=== PATIENT | male | born 1950 | race Caucasian/White ===

== ENCOUNTER 2017-11-26 21:53 | Emergency (ER) | payer BC, MEDICARE ==
[~2017-11-26] VITALS: Ht 177.8 cm; Wt 86.2 kg
[2017-11-26 22:43] LABS: Basophils # (auto) 0 uL; Basophils % (auto) 0.4 % (0.0-2.0); Eosinophils # (auto) 0.4 uL; Eosinophils % (auto) 4.2 % (0.0-7.0); Hematocrit 43.8 % (41.0-53.0); Hemoglobin 14.5 g/dL (13.5-17.5); Lymphocytes # (auto) 3.5 uL; Lymphocytes % (auto) 35.9 % (10.0-50.0); Mean Corpuscular Hemoglobin 30.3 pg (28.0-32.0); Mean Corpuscular Volume 91.8 fL (80.0-100.0); Monocytes # (auto) 0.9 uL; Monocytes % (auto) 9.6 % (0.0-12.0); Neutrophils # (auto) 4.9 uL; Neutrophils % (auto) 49.9 % (37.0-80.0); Platelet Count (auto) 233 10^3/uL (140-450); Red Blood Cells 4.78 10^6/uL (4.5-5.90); Red Cell Distribution Width 15.9 % (11.8-14.3); White Blood Cell 9.8 10^3/uL (4.4-10.8)
[2017-11-26 22:54] LABS: INR 1.01 (0.9-1.15); Prothrombin Time 10.8 sec (9.27-12.13)
[2017-11-26] MEDS: MORPHINE SULF INJ 2 MG/ML SYRINGE 1ML IV ONE (23:01)
[2017-11-26] MEDS: ASPirin-EC 325mg tab PO ONE (23:01)
[2017-11-26 23:03] LABS: Albumin 3.4 g/dL (3.4-5.0); Anion Gap 10 (5-15); Blood Urea Nitrogen 32 mg/dL (7-18); Calcium 8.4 mg/dL (8.5-10.1); Carbon Dioxide 24 mmol/L (21-32); Chloride 107 mmol/L (98-107); Glucose 92 mg/dL (74-106); Magnesium 2.2 mg/dL (1.6-2.6); Potassium 3.8 mmol/L (3.5-5.1); Sodium 141 mmol/L (136-145)
[2017-11-26 23:05] LABS: Alanine Aminotransferase 27 U/L (16-61); Aspartate Aminotransferase 9 U/L (15-37); BUN/Creatinine Ratio 26.4; GFR African American 77 mL/min; GFR Non-African American 63 mL/min
[2017-11-26 23:10] LABS: Alkaline Phosphatase 99 U/L (45-117); Bilirubin, Total 0.2 mg/dL (0.2-1.0); Total Protein 6.7 g/dL (6.4-8.2)
[2017-11-26] MEDS: ALBUTEROL SULF 2.5 MG/0.5ML(0.5%) NEB SOLN NEB ONE (23:13)
[2017-11-26] MEDS: IPRATROPIUM BROM 0.5 MG/2.5ML INH SOL NEB ONE (23:13)
[2017-11-27 00:58] VITALS: BP 116/76
== END 2017-11-27 00:31 | disposition home or self-care (01) ==
LOC: EDBD 21:53 → ER 21:58
DX: I71.4 Abdominal aortic aneurysm, without rupture (principal); J44.9 Chronic obstructive pulmonary disease, unspecified; R07.9 Chest pain, unspecified; I25.119 Atherosclerotic heart disease of native coronary artery with unspecified angina pectoris; I10 Essential (primary) hypertension; I25.2 Old myocardial infarction; Z98.61 Coronary angioplasty status
CPT/HCPCS: 36415; 71045; 71260; 74177; 80053; 83735; 83880; 84484; 85025; 85610; 85730; 93005; 94640; 94761; 96374; 99285; J2270; J7611; J7644

== ENCOUNTER 2021-03-09 06:58 | Inpatient (IN) | payer MEDICARE, OTHER ==
[~2021-03-09] VITALS: Ht 177.8 cm; Wt 113.0 kg
[2021-03-09 06:58] VITALS: BP_SYST 160; BP_SYST 190; BP_DIAS 106
[~2021-03-09 06:58] MED LIST: ALB5IS NEB; ALBU0.084 NEB; ALPR0.5T PO; APIX5TAB PO; ATOR40TA52 PO; FURO1TAB31 PO; LEUP45IN2 IM; METO25TA36 PO; MULTTAB99 PO; POTA10TA51 PO; PRE1T PO; SENN1TAB14 PO; TRAM50TA2 PO
[2021-03-09] MEDS ORDERED: ETOMIDATE (2MG/ML) 20ML VIAL IV ONE (07:45)
[2021-03-09] MEDS ORDERED: SUCCINYLCHOLINE CHLORIDE 20 MG/ML 10ML VIAL IV ONE (07:45)
[2021-03-09] MEDS ORDERED: MIDAZOLAM DRIP 50 mg/50mL 50 ML IV ONE (07:45)
[2021-03-09] MEDS ORDERED: MORPHINE SULFATE 4 MG/ML SYR/VIAL ONE (07:46)
[2021-03-09] MEDS ORDERED: fentaNYL Drip 2500mCg/250mlNS 250 ML IV ONE (07:47)
[2021-03-09 07:48] LABS: Basophils # (auto) 0 10 ^3/uL (0-0.2); Basophils % (auto) 0.2 % (0.0-2.0); Eosinophils # (auto) 0 10 ^3/uL (0-0.8); Eosinophils % (auto) 0.1 % (0.0-7.0); Hematocrit 45.5 % (41.0-53.0); Hemoglobin 14.7 g/dL (13.5-17.5); Lymphocytes # (auto) 3.7 10 ^3/uL (0.4-5.4); Lymphocytes % (auto) 32.2 % (10.0-50.0); Mean Corpuscular Hemoglobin 29.6 pg (28.0-32.0); Mean Corpuscular Hgb Conc. 32.4 g/dL (32.0-36.0); Mean Corpuscular Volume 91.6 fL (80.0-100.0); Monocytes # (auto) 0.5 10 ^3/uL (0-1.3); Monocytes % (auto) 4.1 % (0.0-12.0); Neutrophils # (auto) 7.2 10 ^3/uL (1.6-8.6); Neutrophils % (auto) 63.4 % (37.0-80.0); Nucleated Red Blood Cells % 0.1 %; Red Blood Cells 4.97 10^6/uL (4.5-5.90); White Blood Cell 11.4 10^3/uL (4.4-10.8)
[2021-03-09] MEDS ORDERED: methylPREDNISolone SOD SUCC 125 MG/2 ML VL ONE (07:53)
[2021-03-09] MEDS ORDERED: FUROSEMIDE 40 MG/4 ML VIAL ONE (07:53)
[2021-03-09] MEDS ORDERED: methylPREDNISolone SOD SUCC 125 MG/2 ML VL IV ONE (08:00)
[2021-03-09] MEDS ORDERED: FUROSEMIDE 20 MG/2 ML VIAL IV ONE (08:00)
[2021-03-09 08:10] LABS: Albumin 2.8 g/dL (3.4-5.0); Calcium 8.6 mg/dL (8.5-10.1); Magnesium 2.8 mg/dL (1.6-2.6); Potassium 4.5 mmol/L (3.5-5.1)
[2021-03-09 08:15] LABS: BUN/Creatinine Ratio 25.2; Bilirubin, Total 0.6 mg/dL (0.2-1.0); Total Protein 6.9 g/dL (6.4-8.2)
[2021-03-09] MEDS ORDERED: MORPHINE SULFATE 4 MG/ML SYR/VIAL IV ONE (08:15)
[2021-03-09] MEDS ORDERED: ALBUTEROL SULF 2.5 MG/0.5ML(0.5%) NEB SOLN NEB ONE ×2 (08:45→13:45)
[2021-03-09] MEDS ORDERED: ALBUTEROL SULF 2.5 MG/0.5ML(0.5%) NEB SOLN ONE (08:47)
[2021-03-09 09:25] LABS: Urine Bacteria FEW /hpf (None Seen); Urine Blood TRACE /uL (Negative); Urine Hyaline Cast MOD /lpf (0 - 2); Urine Mucus FEW (None Seen); Urine Specific Gravity 1.009 (1.001-1.035); Urine WBC <1 /hpf (0 - 3)
[2021-03-09 09:46] LABS: INR 1.04 (0.9-1.15); Partial Thromboplastin Time 29.5 sec (23.6-33.0)
[2021-03-09] MEDS: MORPHINE SULFATE INJECTION 2 MG/ML SYRG IV PRN ×2 (10:07→22:32)
[2021-03-09] MEDS ORDERED: AZITHROMYCIN 500MG/ 250ML 250 ML IV ONE (11:00)
[2021-03-09] MEDS ORDERED: cefTRIAXone 1GM/50ML D5W 50 ML IV ONE (11:00)
[2021-03-09] MEDS ORDERED: NITROGLYCERIN 0.4 MG SL TAB SL PRN ×2 (12:00→13:45)
[2021-03-09] MEDS: LORazepam 2MG/ML-1ML VIAL IV PRN ×2 (12:38→20:21)
[2021-03-09] MEDS ORDERED: ALBUTEROL SULF 2.5 MG/0.5ML(0.5%) NEB SOLN NEB PRN (13:45)
[2021-03-09] MEDS ORDERED: BUMETANIDE 2.5mg/10ml (0.25 mg/ml) INJ IV ONE (13:45)
[2021-03-09] MEDS ORDERED: DOCUSATE SOD 100 MG CAP PO PRN (13:45)
[2021-03-09] MEDS ORDERED: HYDROcodone-ACET 5/325MG TAB PO PRN (13:45)
[2021-03-09] MEDS ORDERED: ALUM & MAG HYDROX-SIMETH LIQ(MAALOX) 30 ML PO PRN (13:45)
[2021-03-09] MEDS ORDERED: LORazepam 0.5 MG TAB PO PRN (13:45)
[2021-03-09] MEDS ORDERED: levoFLOXacin 750MG 150 ML IV ONE (13:45)
[2021-03-09] MEDS ORDERED: MORPHINE SULFATE INJECTION 2 MG/ML SYRG IV PRN ×2 (13:45)
[2021-03-09] MEDS ORDERED: IPRATROPIUM BROM 0.5 MG/2.5ML INH SOL NEB ONE (13:45)
[2021-03-09] MEDS ORDERED: BUDESONIDE (INHALATION) 0.5 MG/2 ML NEB NEB ONE (13:45)
[2021-03-09] MEDS ORDERED: ACETAMINOPHEN 500 MG TAB PO PRN (13:45)
[2021-03-09] MEDS ORDERED: REMDESIVIR PER PHARMACY 0 ML IV SCH (13:45)
[2021-03-09] MEDS ORDERED: ALBUTEROL SULF HFA 90MCG INH 200DOSE IN PRN (14:00)
[2021-03-09] MEDS: hydrALAZINE HCL 10 MG TAB PO SCH ×2 (14:00→22:00)
[2021-03-09] MEDS ORDERED: IPRATROPIUM BROM 0.5 MG/2.5ML INH SOL NEB SCH (14:00)
[2021-03-09] MEDS ORDERED: REMDESIVIR 200 MG in NS 210ml LOADING DOSE ADULT IV ONE (15:00)
[2021-03-09 15:26] LABS: Alcohol, Urine < 3.0 mg/dL (0-10); Amphetamine Screen, Urine NEGATIVE (NEGATIVE); Barbiturate Scree,Urine NEGATIVE (NEGATIVE); Benzodiazephine Screen, Urine NEGATIVE (NEGATIVE); Cannabinoid Screen, Urine NEGATIVE (NEGATIVE); Cocaine Screen, Urine NEGATIVE (NEGATIVE); Opiate Scree,Urine POSITIVE (NEGATIVE); Phencyclidine Screen, Urine NEGATIVE (NEGATIVE)
[2021-03-09 15:26] LABS: Thyroid Stimulating Hormone 1.17 uIU/mL (0.358-3.74)
[2021-03-09] MEDS: BUMETANIDE 2.5mg/10ml (0.25 mg/ml) INJ IV SCH (18:28)
[2021-03-09] MEDS ORDERED: BUDESONIDE (INHALATION) 0.5 MG/2 ML NEB NEB SCH (22:00)
[2021-03-09] MEDS ORDERED: BUDESONIDE (INHALATION) 180 MCG IH IN SCH (22:00)
[2021-03-09] MEDS ORDERED: ATORVASTATIN 20 MG TAB PO SCH (22:00)
[2021-03-09] MEDS: ISOSORBIDE MONONITRATE 20 MG TAB PO SCH (22:00)
[2021-03-09] MEDS: CARVEDILOL 3.125 MG TAB PO SCH (22:28)
[2021-03-09] MEDS: APIXABAN 5 MG TAB PO SCH (22:28)
[2021-03-10] MEDS: LORazepam 2MG/ML-1ML VIAL IV PRN ×4 (00:54→22:07)
[2021-03-10] MEDS ORDERED: CARV3.1240 PO (01:05)
[2021-03-10] MEDS ORDERED: LORA-622 PO (01:05)
[2021-03-10] MEDS ORDERED: SALI0.6562 NAS (01:05)
[2021-03-10] MEDS ORDERED: AMIO200T4 PO (01:05)
[2021-03-10] MEDS ORDERED: BUME2TAB5 PO (01:05)
[2021-03-10] MEDS ORDERED: GAB100C PO (01:05)
[2021-03-10] MEDS ORDERED: LORA1TAB23 PO (01:05)
[2021-03-10] MEDS ORDERED: LACTCAP20 PO (01:05)
[2021-03-10] MEDS ORDERED: FLUT1AER17 INH (01:05)
[2021-03-10] MEDS ORDERED: LACT10SO3 PO (01:05)
[2021-03-10] MEDS ORDERED: CHOL500014 PO (01:05)
[2021-03-10] MEDS ORDERED: [UNRECOGNIZED DRUG - CODE] PO (01:05)
[2021-03-10] MEDS ORDERED: HYDR-4072 PO (01:05)
[2021-03-10] MEDS ORDERED: BUDE2SUS3 NEB (01:05)
[2021-03-10] MEDS ORDERED: THROLOZ41 PO (01:05)
[2021-03-10] MEDS ORDERED: PRE5T PO (01:05)
[2021-03-10] MEDS ORDERED: HYDRX10T PO (01:05)
[2021-03-10 02:15] VITALS: BP 151/102
[2021-03-10] MEDS: MORPHINE SULFATE INJECTION 2 MG/ML SYRG IV PRN (04:29)
[2021-03-10 05:32] LABS: Basophils # (auto) 0.1 10 ^3/uL (0-0.2); Basophils % (auto) 0.8 % (0.0-2.0); Eosinophils # (auto) 0 10 ^3/uL (0-0.8); Hematocrit 38.1 % (41.0-53.0); Hemoglobin 12.3 g/dL (13.5-17.5); Lymphocytes # (auto) 1.2 10 ^3/uL (0.4-5.4); Lymphocytes % (auto) 10.6 % (10.0-50.0); Mean Corpuscular Hgb Conc. 32.4 g/dL (32.0-36.0); Mean Corpuscular Volume 89.4 fL (80.0-100.0); Monocytes # (auto) 0.5 10 ^3/uL (0-1.3); Monocytes % (auto) 4.6 % (0.0-12.0); Neutrophils # (auto) 9.6 10 ^3/uL (1.6-8.6); Nucleated Red Blood Cells % 0.1 %; Red Blood Cells 4.26 10^6/uL (4.5-5.90); White Blood Cell 11.5 10^3/uL (4.4-10.8)
[2021-03-10 05:49] LABS: Albumin 2.7 g/dL (3.4-5.0); Calcium 8.8 mg/dL (8.5-10.1)
[2021-03-10 05:53] LABS: BUN/Creatinine Ratio 29.8; Bilirubin, Total 0.6 mg/dL (0.2-1.0)
[2021-03-10] MEDS: BUMETANIDE 2.5mg/10ml (0.25 mg/ml) INJ IV SCH ×2 (06:54→17:21)
[2021-03-10] MEDS: hydrALAZINE HCL 10 MG TAB PO SCH ×3 (06:55→22:03)
[2021-03-10] MEDS ORDERED: SUCCINYLCHOLINE CHLORIDE 20 MG/ML 10ML VIAL IV ONE ×2 (09:26→09:30)
[2021-03-10] MEDS ORDERED: ETOMIDATE (2MG/ML) 20ML VIAL IV ONE ×2 (09:26→09:30)
[2021-03-10] MEDS ORDERED: MIDAZOLAM DRIP 50 mg/50mL 50 ML IV ONE (09:27)
[2021-03-10] MEDS: MIDAZOLAM DRIP 50 mg/50mL 50 ML IV SCH (09:30)
[2021-03-10] MEDS: fentaNYL Drip 2500mCg/250mlNS 250 ML IV SCH (09:30)
[2021-03-10] MEDS ORDERED: PROMETHAZINE HCL 25 MG/ML 1ML IV ONE (09:45)
[2021-03-10] MEDS ORDERED: HYDROmorphone HCL 2 MG/ML VL IV ONE (09:45)
[2021-03-10] MEDS: DexAMETHasone SOD PHOS 10MG/1ML VIAL INJ IV SCH (10:00)
[2021-03-10] MEDS: CHOLECALCIFEROL (VITD3) 2,000 UNIT CAP/TAB PO SCH (10:00)
[2021-03-10] MEDS: ASCORBIC ACID 1,000 MG TAB PO SCH (10:00)
[2021-03-10] MEDS: ISOSORBIDE MONONITRATE 20 MG TAB PO SCH ×2 (10:00→22:07)
[2021-03-10] MEDS: APIXABAN 5 MG TAB PO SCH ×2 (10:00→22:06)
[2021-03-10] MEDS: CARVEDILOL 3.125 MG TAB PO SCH ×2 (10:00→22:04)
[2021-03-10] MEDS ORDERED: levoFLOXacin 750MG 150 ML IV SCH (10:00)
[2021-03-10] MEDS: ASPirin 81 mg TAB PO SCH (10:00)
[2021-03-10] MEDS: IVERMECTIN 3 MG TAB PO SCH (10:00)
[2021-03-10 10:25] VITALS: BP 123/79
[2021-03-10] MEDS ORDERED: HYDROmorphone HCL 2 MG/ML VL IV PRN (10:30)
[2021-03-10] MEDS ORDERED: PIPERACILLIN-TAZO 4.5GM 100 ML IV ONE (10:45)
[2021-03-10] MEDS ORDERED: BUDESONIDE (INHALATION) 0.5 MG/2 ML NEB NEB ONE (10:45)
[2021-03-10] MEDS ORDERED: ALBUTEROL SULF 2.5 MG/0.5ML(0.5%) NEB SOLN NEB ONE (10:45)
[2021-03-10] MEDS ORDERED: IPRATROPIUM BROM 0.5 MG/2.5ML INH SOL NEB ONE (10:45)
[2021-03-10] MEDS ORDERED: LABETALOL HCL 5 MG/ML 4ML SYRINGE IV PRN (11:00)
[2021-03-10 11:49] VITALS: BP 151/80
[2021-03-10 13:45] VITALS: BP 110/71
[2021-03-10] MEDS ORDERED: IPRATROPIUM BROM 0.5 MG/2.5ML INH SOL NEB SCH (14:00)
[2021-03-10] MEDS ORDERED: IPRATROPIUM BROM 0.5 MG/2.5ML INH SOL NEB PRN (14:00)
[2021-03-10] MEDS: HYDROmorphone HCL 2 MG/ML VL IV PRN ×2 (14:18→18:46)
[2021-03-10] MEDS: ONDANSETRON HCL 4 MG/2 ML VIAL IV PRN ×2 (14:22→18:46)
[2021-03-10] MEDS: REMDESIVIR 100mg 100 MG in SODIUM CHL 0.9% 230 ML IV SCH (15:08)
[2021-03-10 18:10] VITALS: BP 131/58
[2021-03-10] MEDS: PIPERACILLIN-TAZO 4.5GM 100 ML IV SCH (20:09)
[2021-03-10] MEDS: ATORVASTATIN 20 MG TAB PO SCH (22:07)
[2021-03-10 22:10] VITALS: BP 132/87
[2021-03-10] MEDS: BUDESONIDE (INHALATION) 0.5 MG/2 ML NEB NEB SCH (22:10)
[2021-03-10] MEDS: ALBUTEROL SULF 2.5 MG/0.5ML(0.5%) NEB SOLN NEB PRN (22:11)
[2021-03-11] VITALS (7 sets, daily range): BP systolic 109–142; BP diastolic 71–86
[2021-03-11] MEDS: PIPERACILLIN-TAZO 4.5GM 100 ML IV SCH ×3 (02:24→19:04)
[2021-03-11] MEDS: MORPHINE SULFATE INJECTION 2 MG/ML SYRG IV PRN ×2 (04:10→14:59)
[2021-03-11] MEDS: ONDANSETRON HCL 4 MG/2 ML VIAL IV PRN (04:10)
[2021-03-11] MEDS: BUMETANIDE 2.5mg/10ml (0.25 mg/ml) INJ IV SCH ×2 (05:53→18:08)
[2021-03-11] MEDS: hydrALAZINE HCL 10 MG TAB PO SCH ×3 (05:54→22:00)
[2021-03-11] MEDS: HYDROmorphone HCL 2 MG/ML VL IV PRN ×2 (08:01→17:40)
[2021-03-11] MEDS: LORazepam 2MG/ML-1ML VIAL IV PRN ×4 (09:14→19:05)
[2021-03-11] MEDS: MIDAZOLAM DRIP 50 mg/50mL 50 ML IV SCH (09:30)
[2021-03-11] MEDS: fentaNYL Drip 2500mCg/250mlNS 250 ML IV SCH (09:30)
[2021-03-11] MEDS: ALBUTEROL SULF 2.5 MG/0.5ML(0.5%) NEB SOLN NEB PRN ×2 (09:54→19:11)
[2021-03-11] MEDS: BUDESONIDE (INHALATION) 0.5 MG/2 ML NEB NEB SCH ×2 (09:54→19:11)
[2021-03-11 10:02] LABS: Basophils # (auto) 0 10 ^3/uL (0-0.2); Basophils % (auto) 0.1 % (0.0-2.0); Eosinophils # (auto) 0 10 ^3/uL (0-0.8); Hematocrit 37.7 % (41.0-53.0); Hemoglobin 12.3 g/dL (13.5-17.5); Lymphocytes % (auto) 10.4 % (10.0-50.0); Mean Corpuscular Hemoglobin 29.4 pg (28.0-32.0); Mean Corpuscular Hgb Conc. 32.7 g/dL (32.0-36.0); Mean Corpuscular Volume 90.1 fL (80.0-100.0); Monocytes # (auto) 0.5 10 ^3/uL (0-1.3); Monocytes % (auto) 5.6 % (0.0-12.0); Neutrophils % (auto) 83.9 % (37.0-80.0); Red Blood Cells 4.19 10^6/uL (4.5-5.90); Red Cell Distribution Width 17.1 % (11.8-14.3); White Blood Cell 9.5 10^3/uL (4.4-10.8)
[2021-03-11 10:07] LABS: Albumin 2.6 g/dL (3.4-5.0); Calcium 8.6 mg/dL (8.5-10.1); Phosphorus 4.5 mg/dL (2.5-4.90); Potassium 3.8 mmol/L (3.5-5.1)
[2021-03-11 10:10] LABS: BUN/Creatinine Ratio 40.5; Bilirubin, Total 0.6 mg/dL (0.2-1.0); Total Protein 6.2 g/dL (6.4-8.2)
[2021-03-11] MEDS: DexAMETHasone SOD PHOS 10MG/1ML VIAL INJ IV SCH (10:25)
[2021-03-11] MEDS: ASPirin 81 mg TAB PO SCH (10:30)
[2021-03-11] MEDS: CHOLECALCIFEROL (VITD3) 2,000 UNIT CAP/TAB PO SCH (10:35)
[2021-03-11] MEDS: ASCORBIC ACID 1,000 MG TAB PO SCH (10:35)
[2021-03-11] MEDS: ISOSORBIDE MONONITRATE 20 MG TAB PO SCH ×2 (10:35→22:00)
[2021-03-11] MEDS: CARVEDILOL 3.125 MG TAB PO SCH ×2 (10:35→22:00)
[2021-03-11] MEDS: APIXABAN 5 MG TAB PO SCH ×2 (10:35→22:00)
[2021-03-11] MEDS: IVERMECTIN 3 MG TAB PO SCH (10:35)
[2021-03-11] MEDS: CLINDAMYCIN 600MG IV 50 ML IV SCH ×2 (13:51→20:49)
[2021-03-11] MEDS: REMDESIVIR 100mg 100 MG in SODIUM CHL 0.9% 230 ML IV SCH (16:23)
[2021-03-11] MEDS: ATORVASTATIN 20 MG TAB PO SCH (22:00)
[2021-03-12] VITALS (13 sets, daily range): BP systolic 113–165; BP diastolic 66–108
[2021-03-12] MEDS: CLINDAMYCIN 600MG IV 50 ML IV SCH ×3 (00:07→20:45)
[2021-03-12] MEDS: MORPHINE SULFATE INJECTION 2 MG/ML SYRG IV PRN ×3 (02:11→17:20)
[2021-03-12] MEDS: PIPERACILLIN-TAZO 4.5GM 100 ML IV SCH ×3 (03:25→19:35)
[2021-03-12] MEDS: hydrALAZINE HCL 10 MG TAB PO SCH ×3 (06:00→22:00)
[2021-03-12] MEDS: BUMETANIDE 2.5mg/10ml (0.25 mg/ml) INJ IV SCH ×2 (06:12→18:00)
[2021-03-12] MEDS: LORazepam 2MG/ML-1ML VIAL IV PRN ×5 (06:33→22:29)
[2021-03-12] MEDS: HYDROmorphone HCL 2 MG/ML VL IV PRN ×3 (06:33→18:05)
[2021-03-12 06:39] LABS: Basophils # (auto) 0 10 ^3/uL (0-0.2); Basophils % (auto) 0.1 % (0.0-2.0); Eosinophils # (auto) 0 10 ^3/uL (0-0.8); Hematocrit 38.5 % (41.0-53.0); Hemoglobin 12.7 g/dL (13.5-17.5); Lymphocytes # (auto) 1.1 10 ^3/uL (0.4-5.4); Lymphocytes % (auto) 9.7 % (10.0-50.0); Mean Corpuscular Hemoglobin 29.6 pg (28.0-32.0); Mean Corpuscular Hgb Conc. 32.9 g/dL (32.0-36.0); Monocytes # (auto) 0.6 10 ^3/uL (0-1.3); Monocytes % (auto) 5.4 % (0.0-12.0); Neutrophils # (auto) 9.5 10 ^3/uL (1.6-8.6); Neutrophils % (auto) 84.8 % (37.0-80.0); Nucleated Red Blood Cells % 0.1 %; Red Blood Cells 4.28 10^6/uL (4.5-5.90); Red Cell Distribution Width 17.4 % (11.8-14.3); White Blood Cell 11.3 10^3/uL (4.4-10.8)
[2021-03-12 06:53] LABS: Albumin 2.5 g/dL (3.4-5.0); Calcium 9.5 mg/dL (8.5-10.1); Potassium 3.4 mmol/L (3.5-5.1)
[2021-03-12 06:58] LABS: Bilirubin, Total 0.6 mg/dL (0.2-1.0); Total Protein 6.7 g/dL (6.4-8.2)
[2021-03-12] MEDS: fentaNYL Drip 2500mCg/250mlNS 250 ML IV SCH (09:30)
[2021-03-12] MEDS: MIDAZOLAM DRIP 50 mg/50mL 50 ML IV SCH (09:30)
[2021-03-12] MEDS: CHOLECALCIFEROL (VITD3) 2,000 UNIT CAP/TAB PO SCH (10:00)
[2021-03-12] MEDS: APIXABAN 5 MG TAB PO SCH ×2 (10:00→22:00)
[2021-03-12] MEDS: ISOSORBIDE MONONITRATE 20 MG TAB PO SCH ×2 (10:00→20:47)
[2021-03-12] MEDS: BUDESONIDE (INHALATION) 0.5 MG/2 ML NEB NEB SCH ×2 (10:00→22:00)
[2021-03-12] MEDS: CARVEDILOL 3.125 MG TAB PO SCH ×2 (10:00→20:46)
[2021-03-12] MEDS: ASPirin 81 mg TAB PO SCH (10:00)
[2021-03-12] MEDS: IVERMECTIN 3 MG TAB PO SCH (10:00)
[2021-03-12] MEDS: ASCORBIC ACID 1,000 MG TAB PO SCH (10:00)
[2021-03-12] MEDS: DexAMETHasone SOD PHOS 10MG/1ML VIAL INJ IV SCH (10:23)
[2021-03-12] MEDS: POTASSIUM CHL 20MEQ/50ML 50 ML IV SCH ×2 (10:38→12:27)
[2021-03-12] MEDS ORDERED: ACETAMINOPHEN 650 MG RECT SUPP PR PRN (10:45)
[2021-03-12] MEDS: REMDESIVIR 100mg 100 MG in SODIUM CHL 0.9% 230 ML IV SCH (15:16)
[2021-03-12] MEDS: ATORVASTATIN 20 MG TAB PO SCH (20:48)
[2021-03-13] VITALS (13 sets, daily range): BP systolic 108–171; BP diastolic 68–121
[2021-03-13] MEDS: LORazepam 2MG/ML-1ML VIAL IV PRN ×3 (01:21→06:53)
[2021-03-13] MEDS: MORPHINE SULFATE INJECTION 2 MG/ML SYRG IV PRN (01:33)
[2021-03-13] MEDS: CLINDAMYCIN 600MG IV 50 ML IV SCH (03:06)
[2021-03-13] MEDS: PIPERACILLIN-TAZO 4.5GM 100 ML IV SCH ×3 (03:06→19:30)
[2021-03-13] MEDS: HYDROmorphone HCL 2 MG/ML VL IV PRN (04:51)
[2021-03-13] MEDS: hydrALAZINE HCL 10 MG TAB PO SCH ×3 (05:43→22:00)
[2021-03-13] MEDS: BUMETANIDE 2.5mg/10ml (0.25 mg/ml) INJ IV SCH (05:43)
[2021-03-13] MEDS: BUDESONIDE (INHALATION) 0.5 MG/2 ML NEB NEB SCH ×2 (06:22→22:54)
[2021-03-13] MEDS: ALBUTEROL SULF 2.5 MG/0.5ML(0.5%) NEB SOLN NEB PRN ×2 (06:22→22:54)
[2021-03-13 06:58] LABS: Albumin 2.6 g/dL (3.4-5.0); Potassium 3.5 mmol/L (3.5-5.1)
[2021-03-13 07:02] LABS: Bilirubin, Total 0.6 mg/dL (0.2-1.0); Total Protein 6.9 g/dL (6.4-8.2)
[2021-03-13] MEDS ORDERED: ETOMIDATE (2MG/ML) 20ML VIAL IV ONE ×2 (08:28→08:45)
[2021-03-13] MEDS ORDERED: ROCURONIUM 10MG/ML 10ML VIAL IV ONE ×2 (08:28→08:45)
[2021-03-13] MEDS ORDERED: MIDAZOLAM HCL 2MG/2ML 2ml VIAL (1mg/ml) ONE (08:29)
[2021-03-13] MEDS ORDERED: PROPOFOL 100 ML IV ONE (08:36)
[2021-03-13] MEDS: PROPOFOL 100 ML IV SCH (08:38)
[2021-03-13] MEDS ORDERED: MIDAZOLAM HCL 2MG/2ML 2ml VIAL (1mg/ml) IV ONE (08:45)
[2021-03-13] MEDS: APIXABAN 5 MG TAB PO SCH ×2 (10:00→22:53)
[2021-03-13] MEDS: CARVEDILOL 3.125 MG TAB PO SCH ×2 (10:00→22:53)
[2021-03-13] MEDS: ASCORBIC ACID 1,000 MG TAB PO SCH (10:00)
[2021-03-13] MEDS: IVERMECTIN 3 MG TAB PO SCH (10:00)
[2021-03-13] MEDS ORDERED: ISOSORBIDE MONONITRATE 20 MG TAB PO SCH (12:30)
[2021-03-13] MEDS: DexAMETHasone SOD PHOS 10MG/1ML VIAL INJ IV SCH (12:45)
[2021-03-13] MEDS ORDERED: D5W 5% 1,000 ML IV ONE (13:30)
[2021-03-13] MEDS: fentaNYL Drip 2500mCg/250mlNS 250 ML IV SCH (15:45)
[2021-03-13] MEDS: MIDAZOLAM DRIP 50 mg/50mL 50 ML IV SCH (15:45)
[2021-03-13] MEDS: REMDESIVIR 100mg 100 MG in SODIUM CHL 0.9% 230 ML IV SCH (16:00)
[2021-03-13] MEDS: ATORVASTATIN 20 MG TAB PO SCH (22:54)
[2021-03-14 01:52] VITALS: BP 121/73
[2021-03-14] MEDS: PIPERACILLIN-TAZO 4.5GM 100 ML IV SCH ×3 (03:45→19:05)
[2021-03-14] MEDS: hydrALAZINE HCL 10 MG TAB PO SCH ×3 (06:00→21:47)
[2021-03-14 07:30] VITALS: BP 141/87
[2021-03-14 07:43] LABS: Basophils # (auto) 0 10 ^3/uL (0-0.2); Basophils % (auto) 0.2 % (0.0-2.0); Eosinophils # (auto) 0 10 ^3/uL (0-0.8); Hematocrit 37.6 % (41.0-53.0); Hemoglobin 12.5 g/dL (13.5-17.5); Lymphocytes # (auto) 1.1 10 ^3/uL (0.4-5.4); Lymphocytes % (auto) 11.7 % (10.0-50.0); Mean Corpuscular Hemoglobin 29.9 pg (28.0-32.0); Mean Corpuscular Hgb Conc. 33.1 g/dL (32.0-36.0); Mean Corpuscular Volume 90.2 fL (80.0-100.0); Monocytes # (auto) 0.5 10 ^3/uL (0-1.3); Monocytes % (auto) 5.4 % (0.0-12.0); Neutrophils # (auto) 7.8 10 ^3/uL (1.6-8.6); Neutrophils % (auto) 82.7 % (37.0-80.0); Nucleated Red Blood Cells % 0.1 %; Red Blood Cells 4.17 10^6/uL (4.5-5.90); Red Cell Distribution Width 16.7 % (11.8-14.3); White Blood Cell 9.5 10^3/uL (4.4-10.8)
[2021-03-14 07:53] LABS: Albumin 2.5 g/dL (3.4-5.0); Calcium 9.1 mg/dL (8.5-10.1); Potassium 3.2 mmol/L (3.5-5.1)
[2021-03-14 07:58] LABS: BUN/Creatinine Ratio 47.8; Bilirubin, Total 0.8 mg/dL (0.2-1.0); Total Protein 6.7 g/dL (6.4-8.2)
[2021-03-14] MEDS: PROPOFOL 100 ML IV SCH (08:45)
[2021-03-14 09:43] VITALS: BP 121/74
[2021-03-14] MEDS: BUDESONIDE (INHALATION) 0.5 MG/2 ML NEB NEB SCH ×2 (09:57→18:18)
[2021-03-14] MEDS: ALBUTEROL SULF 2.5 MG/0.5ML(0.5%) NEB SOLN NEB PRN ×2 (09:57→18:18)
[2021-03-14] MEDS: CARVEDILOL 3.125 MG TAB PO SCH ×2 (10:00→21:49)
[2021-03-14] MEDS: MIDAZOLAM DRIP 50 mg/50mL 50 ML IV SCH (10:07)
[2021-03-14] MEDS: fentaNYL Drip 2500mCg/250mlNS 250 ML IV SCH (10:07)
[2021-03-14] MEDS: APIXABAN 5 MG TAB PO SCH ×2 (10:08→21:50)
[2021-03-14] MEDS: IVERMECTIN 3 MG TAB PO SCH (10:09)
[2021-03-14] MEDS: ASCORBIC ACID 1,000 MG TAB PO SCH (10:10)
[2021-03-14] MEDS: DexAMETHasone SOD PHOS 10MG/1ML VIAL INJ IV SCH (10:15)
[2021-03-14 14:00] VITALS: BP 116/68
[2021-03-14] MEDS: POTASSIUM CHLORIDE 20 MEQ in D5W 5% 1,000 ML IV SCH ×3 (17:17→19:34)
[2021-03-14 18:18] VITALS: BP 108/75
[2021-03-14] MEDS: ATORVASTATIN 20 MG TAB PO SCH (21:50)
[2021-03-14 22:43] VITALS: BP 111/65
[2021-03-15 02:06] VITALS: BP 113/66
[2021-03-15] MEDS: PIPERACILLIN-TAZO 4.5GM 100 ML IV SCH ×3 (03:00→19:53)
[2021-03-15] MEDS: hydrALAZINE HCL 10 MG TAB PO SCH ×3 (07:30→23:35)
[2021-03-15 08:01] LABS: Basophils # (auto) 0.1 10 ^3/uL (0-0.2); Basophils % (auto) 1.1 % (0.0-2.0); Eosinophils # (auto) 0 10 ^3/uL (0-0.8); Hemoglobin 11.8 g/dL (13.5-17.5); Lymphocytes # (auto) 1.1 10 ^3/uL (0.4-5.4); Lymphocytes % (auto) 10.7 % (10.0-50.0); Mean Corpuscular Hemoglobin 29.7 pg (28.0-32.0); Mean Corpuscular Hgb Conc. 32.9 g/dL (32.0-36.0); Mean Corpuscular Volume 90.4 fL (80.0-100.0); Monocytes # (auto) 0.7 10 ^3/uL (0-1.3); Monocytes % (auto) 6.7 % (0.0-12.0); Neutrophils % (auto) 81.5 % (37.0-80.0); Nucleated Red Blood Cells % 0.2 %; Red Blood Cells 3.98 10^6/uL (4.5-5.90); White Blood Cell 9.8 10^3/uL (4.4-10.8)
[2021-03-15 08:37] LABS: Albumin 2.3 g/dL (3.4-5.0); Calcium 8.7 mg/dL (8.5-10.1); Potassium 3.5 mmol/L (3.5-5.1)
[2021-03-15 08:41] LABS: BUN/Creatinine Ratio 46.9; Bilirubin, Total 0.6 mg/dL (0.2-1.0); Total Protein 6.2 g/dL (6.4-8.2)
[2021-03-15] MEDS: PROPOFOL 100 ML IV SCH (08:45)
[2021-03-15] MEDS: fentaNYL Drip 2500mCg/250mlNS 250 ML IV SCH (09:30)
[2021-03-15] MEDS: CARVEDILOL 3.125 MG TAB PO SCH ×2 (09:46→23:35)
[2021-03-15] MEDS: DexAMETHasone SOD PHOS 10MG/1ML VIAL INJ IV SCH (09:46)
[2021-03-15] MEDS: APIXABAN 5 MG TAB PO SCH ×2 (09:46→23:35)
[2021-03-15] MEDS: ASCORBIC ACID 1,000 MG TAB PO SCH (09:46)
[2021-03-15] MEDS: BUDESONIDE (INHALATION) 0.5 MG/2 ML NEB NEB SCH ×2 (10:00→22:59)
[2021-03-15] MEDS: MIDAZOLAM DRIP 50 mg/50mL 50 ML IV SCH (10:07)
[2021-03-15 10:39] VITALS: BP 134/78
[2021-03-15 13:46] VITALS: BP 138/78
[2021-03-15] MEDS: CLINDAMYCIN 600MG IV 50 ML IV SCH ×2 (14:06→22:44)
[2021-03-15 18:16] VITALS: BP 125/81
[2021-03-15 22:13] VITALS: BP 118/78
[2021-03-15] MEDS: ATORVASTATIN 20 MG TAB PO SCH (22:44)
[2021-03-15] MEDS: ALBUTEROL SULF 2.5 MG/0.5ML(0.5%) NEB SOLN NEB PRN (22:59)
[2021-03-16] VITALS (66 sets, daily range): BP systolic 94–142; BP diastolic 63–89
[2021-03-16] MEDS: PIPERACILLIN-TAZO 4.5GM 100 ML IV SCH ×3 (03:16→19:30)
[2021-03-16] MEDS: CLINDAMYCIN 600MG IV 50 ML IV SCH ×3 (06:19→22:35)
[2021-03-16] MEDS: hydrALAZINE HCL 10 MG TAB PO SCH ×2 (06:31→14:38)
[2021-03-16] MEDS: ALBUTEROL SULF 2.5 MG/0.5ML(0.5%) NEB SOLN NEB PRN (07:05)
[2021-03-16] MEDS: BUDESONIDE (INHALATION) 0.5 MG/2 ML NEB NEB SCH ×2 (07:06→18:14)
[2021-03-16 08:07] LABS: Basophils # (auto) 0 10 ^3/uL (0-0.2); Basophils % (auto) 0.1 % (0.0-2.0); Eosinophils # (auto) 0 10 ^3/uL (0-0.8); Eosinophils % (auto) 0.1 % (0.0-7.0); Hematocrit 35.8 % (41.0-53.0); Hemoglobin 11.8 g/dL (13.5-17.5); Lymphocytes # (auto) 1.3 10 ^3/uL (0.4-5.4); Lymphocytes % (auto) 10.5 % (10.0-50.0); Mean Corpuscular Hemoglobin 30.1 pg (28.0-32.0); Mean Corpuscular Volume 91.3 fL (80.0-100.0); Monocytes # (auto) 0.5 10 ^3/uL (0-1.3); Monocytes % (auto) 4.3 % (0.0-12.0); Neutrophils # (auto) 10.2 10 ^3/uL (1.6-8.6); Nucleated Red Blood Cells % 0.4 %; Red Blood Cells 3.93 10^6/uL (4.5-5.90); Red Cell Distribution Width 16.9 % (11.8-14.3)
[2021-03-16 08:25] LABS: Albumin 2.4 g/dL (3.4-5.0); Calcium 8.4 mg/dL (8.5-10.1); Potassium 3.6 mmol/L (3.5-5.1)
[2021-03-16 08:30] LABS: BUN/Creatinine Ratio 43.3; Bilirubin, Total 0.8 mg/dL (0.2-1.0); Total Protein 5.9 g/dL (6.4-8.2)
[2021-03-16] MEDS: PROPOFOL 100 ML IV SCH (10:22)
[2021-03-16] MEDS: CARVEDILOL 3.125 MG TAB PO SCH (11:25)
[2021-03-16] MEDS: DexAMETHasone SOD PHOS 10MG/1ML VIAL INJ IV SCH (11:25)
[2021-03-16] MEDS: APIXABAN 5 MG TAB PO SCH ×2 (11:25→22:35)
[2021-03-16] MEDS: ASCORBIC ACID 1,000 MG TAB PO SCH (11:26)
[2021-03-16] MEDS: MIDAZOLAM DRIP 50 mg/50mL 50 ML IV SCH ×2 (11:34→20:38)
[2021-03-16] MEDS: POTASSIUM CHLORIDE 20 MEQ in D5W 5% 1,000 ML IV SCH ×2 (12:07→15:40)
[2021-03-16 14:24] LABS: Urine Bacteria NONE SEEN /hpf (None Seen); Urine Blood 3+ /uL (Negative); Urine Specific Gravity 1.028 (1.001-1.035); Urine WBC 32 /hpf (0 - 3)
[2021-03-16] MEDS ORDERED: PANTOPRAZOLE 40 MG/10 ML VIAL INJ IV ONE (15:30)
[2021-03-16] MEDS ORDERED: hydrALAZINE HCL 10 MG TAB PO PRN (15:30)
[2021-03-16] MEDS: ALBUTEROL SULF 2.5 MG/0.5ML(0.5%) NEB SOLN NEB SCH (18:14)
[2021-03-16] MEDS: fentaNYL Drip 2500mCg/250mlNS 250 ML IV SCH (19:00)
[2021-03-16] MEDS: Jevity 1.2 Cal/Fiber 1 Liter GT SCH (21:00)
[2021-03-16] MEDS ORDERED: BUDESONIDE (INHALATION) 0.5 MG/2 ML NEB NEB SCH (22:00)
[2021-03-16] MEDS: ATORVASTATIN 20 MG TAB PO SCH (22:36)
[2021-03-17] VITALS (64 sets, daily range): BP systolic 96–150; BP diastolic 53–84
[2021-03-17] MEDS: MIDAZOLAM DRIP 50 mg/50mL 50 ML IV SCH ×6 (01:00→23:00)
[2021-03-17 04:34] LABS: Basophils # (auto) 0 10 ^3/uL (0-0.2); Basophils % (auto) 0.1 % (0.0-2.0); Eosinophils # (auto) 0 10 ^3/uL (0-0.8); Hematocrit 36.9 % (41.0-53.0); Lymphocytes # (auto) 0.9 10 ^3/uL (0.4-5.4); Lymphocytes % (auto) 8.3 % (10.0-50.0); Mean Corpuscular Hemoglobin 29.4 pg (28.0-32.0); Mean Corpuscular Hgb Conc. 32.5 g/dL (32.0-36.0); Mean Corpuscular Volume 90.6 fL (80.0-100.0); Monocytes # (auto) 0.5 10 ^3/uL (0-1.3); Monocytes % (auto) 4.9 % (0.0-12.0); Neutrophils # (auto) 9.1 10 ^3/uL (1.6-8.6); Neutrophils % (auto) 86.7 % (37.0-80.0); Nucleated Red Blood Cells % 0.4 %; Red Blood Cells 4.07 10^6/uL (4.5-5.90); Red Cell Distribution Width 16.9 % (11.8-14.3); White Blood Cell 10.5 10^3/uL (4.4-10.8)
[2021-03-17] MEDS: PIPERACILLIN-TAZO 4.5GM 100 ML IV SCH ×2 (04:49→11:57)
[2021-03-17 05:10] LABS: Albumin 2.4 g/dL (3.4-5.0); BUN/Creatinine Ratio 42.4; Calcium 8.9 mg/dL (8.5-10.1); Potassium 3.7 mmol/L (3.5-5.1)
[2021-03-17 05:24] LABS: Bilirubin, Total 0.6 mg/dL (0.2-1.0); Total Protein 5.9 g/dL (6.4-8.2)
[2021-03-17] MEDS: CLINDAMYCIN 600MG IV 50 ML IV SCH ×2 (05:54→13:39)
[2021-03-17] MEDS: ALBUTEROL SULF 2.5 MG/0.5ML(0.5%) NEB SOLN NEB SCH ×4 (06:37→18:41)
[2021-03-17] MEDS: BUDESONIDE (INHALATION) 0.5 MG/2 ML NEB NEB SCH ×2 (06:37→18:41)
[2021-03-17] MEDS: PROPOFOL 100 ML IV SCH (09:21)
[2021-03-17] MEDS: ASCORBIC ACID 1,000 MG TAB PO SCH (10:45)
[2021-03-17] MEDS: APIXABAN 5 MG TAB PO SCH ×2 (10:45→22:00)
[2021-03-17] MEDS: DexAMETHasone SOD PHOS 10MG/1ML VIAL INJ IV SCH (10:45)
[2021-03-17] MEDS: PANTOPRAZOLE 40 MG/10 ML VIAL INJ IV SCH (11:58)
[2021-03-17] MEDS: fentaNYL Drip 2500mCg/250mlNS 250 ML IV SCH (19:00)
[2021-03-17] MEDS: POTASSIUM CHLORIDE 20 MEQ in D5W 5% 1,000 ML IV SCH (19:00)
[2021-03-17] MEDS: Jevity 1.2 Cal/Fiber 1 Liter GT SCH (21:00)
[2021-03-17] MEDS: LINEZOLID 600MG/300ML 300 ML IV SCH (22:00)
[2021-03-17] MEDS: ATORVASTATIN 20 MG TAB PO SCH (22:00)
[2021-03-17] MEDS: CEFEPIME 1 GM in SODIUM CHL 0.9% 50 ML IV SCH (22:00)
[2021-03-18] VITALS (62 sets, daily range): BP systolic 87–150; BP diastolic 51–83
[2021-03-18] MEDS: ALBUTEROL SULF 2.5 MG/0.5ML(0.5%) NEB SOLN NEB SCH ×4 (00:54→18:37)
[2021-03-18] MEDS: POTASSIUM CHLORIDE 20 MEQ in D5W 5% 1,000 ML IV SCH ×2 (03:40→22:00)
[2021-03-18] MEDS: MIDAZOLAM DRIP 50 mg/50mL 50 ML IV SCH ×5 (03:42→22:00)
[2021-03-18 04:23] LABS: Basophils # (auto) 0 10 ^3/uL (0-0.2); Basophils % (auto) 0.1 % (0.0-2.0); Eosinophils # (auto) 0.1 10 ^3/uL (0-0.8); Eosinophils % (auto) 0.5 % (0.0-7.0); Hematocrit 34.3 % (41.0-53.0); Hemoglobin 11.5 g/dL (13.5-17.5); Lymphocytes # (auto) 1.1 10 ^3/uL (0.4-5.4); Lymphocytes % (auto) 9.5 % (10.0-50.0); Mean Corpuscular Hemoglobin 30.1 pg (28.0-32.0); Mean Corpuscular Hgb Conc. 33.4 g/dL (32.0-36.0); Mean Corpuscular Volume 89.9 fL (80.0-100.0); Monocytes # (auto) 0.8 10 ^3/uL (0-1.3); Monocytes % (auto) 6.5 % (0.0-12.0); Neutrophils # (auto) 9.9 10 ^3/uL (1.6-8.6); Neutrophils % (auto) 83.4 % (37.0-80.0); Nucleated Red Blood Cells % 0.4 %; Red Blood Cells 3.82 10^6/uL (4.5-5.90); Red Cell Distribution Width 17.1 % (11.8-14.3); White Blood Cell 11.8 10^3/uL (4.4-10.8)
[2021-03-18 04:37] LABS: Potassium 3.3 mmol/L (3.5-5.1)
[2021-03-18 04:48] LABS: Albumin 2.3 g/dL (3.4-5.0); BUN/Creatinine Ratio 38.5; Bilirubin, Total 0.6 mg/dL (0.2-1.0); Calcium 8.3 mg/dL (8.5-10.1); Total Protein 5.6 g/dL (6.4-8.2)
[2021-03-18] MEDS: CEFEPIME 1 GM in SODIUM CHL 0.9% 50 ML IV SCH ×3 (06:00→22:00)
[2021-03-18] MEDS: BUDESONIDE (INHALATION) 0.5 MG/2 ML NEB NEB SCH ×2 (06:06→18:37)
[2021-03-18] MEDS: PROPOFOL 100 ML IV SCH (08:45)
[2021-03-18 09:40] LABS: Magnesium 2.4 mg/dL (1.6-2.6)
[2021-03-18 09:42] LABS: Phosphorus 2.5 mg/dL (2.5-4.90)
[2021-03-18] MEDS: ASCORBIC ACID 1,000 MG TAB PO SCH (09:48)
[2021-03-18] MEDS: DexAMETHasone SOD PHOS 10MG/1ML VIAL INJ IV SCH (10:04)
[2021-03-18] MEDS: APIXABAN 5 MG TAB PO SCH ×2 (10:05→22:00)
[2021-03-18] MEDS: PANTOPRAZOLE 40 MG/10 ML VIAL INJ IV SCH (10:05)
[2021-03-18] MEDS: LINEZOLID 600MG/300ML 300 ML IV SCH ×2 (10:06→22:00)
[2021-03-18] MEDS ORDERED: POTASSIUM EFFERVESENT TAB 25 MEQ GT ONE (11:15)
[2021-03-18] MEDS: fentaNYL Drip 2500mCg/250mlNS 250 ML IV SCH (17:41)
[2021-03-18] MEDS: Jevity 1.2 Cal/Fiber 1 Liter GT SCH (21:00)
[2021-03-18] MEDS: ATORVASTATIN 20 MG TAB PO SCH (22:00)
[2021-03-18] MEDS: METOCLOPRAMIDE HCL 5MG/ml INJ 2ml VIAL IV SCH (22:00)
[2021-03-19] VITALS (37 sets, daily range): BP systolic 79–172; BP diastolic 49–87
[2021-03-19] MEDS: ALBUTEROL SULF 2.5 MG/0.5ML(0.5%) NEB SOLN NEB SCH ×4 (00:18→18:50)
[2021-03-19] MEDS: MIDAZOLAM DRIP 50 mg/50mL 50 ML IV SCH ×2 (02:53→09:50)
[2021-03-19 04:33] LABS: Hematocrit 34.6 % (41.0-53.0); Hemoglobin 11.5 g/dL (13.5-17.5); Mean Corpuscular Hemoglobin 29.7 pg (28.0-32.0); Mean Corpuscular Hgb Conc. 33.3 g/dL (32.0-36.0); Mean Corpuscular Volume 89.1 fL (80.0-100.0); Red Blood Cells 3.89 10^6/uL (4.5-5.90); White Blood Cell 11.2 10^3/uL (4.4-10.8)
[2021-03-19 04:46] LABS: Calcium 8.4 mg/dL (8.5-10.1)
[2021-03-19 04:48] LABS: BUN/Creatinine Ratio 31.7
[2021-03-19 04:51] LABS: Bilirubin, Total 0.8 mg/dL (0.2-1.0); Potassium 2.9 mmol/L (3.5-5.1); Total Protein 5.2 g/dL (6.4-8.2)
[2021-03-19 05:08] LABS: Basophils % (manual) 0 (0.0-2.0); Blast Cells 0; Eosinophils % (manual) 0 (0-7); Myelocytes % 0; Promyelocytes % 0; Reactive Lymphocytes 0
[2021-03-19] MEDS: BUDESONIDE (INHALATION) 0.5 MG/2 ML NEB NEB SCH ×2 (05:37→18:50)
[2021-03-19] MEDS: CEFEPIME 1 GM in SODIUM CHL 0.9% 50 ML IV SCH ×3 (06:00→22:00)
[2021-03-19] MEDS: POTASSIUM CHL 20MEQ/50ML 50 ML IV SCH ×2 (06:00→07:33)
[2021-03-19] MEDS: METOCLOPRAMIDE HCL 5MG/ml INJ 2ml VIAL IV SCH ×3 (06:00→22:00)
[2021-03-19] MEDS: PROPOFOL 100 ML IV SCH (08:45)
[2021-03-19 08:59] LABS: Band Neutrophils % (manual) 3; Lymphocytes % (manual) 11 (10.0-50.0); Metamyelocytes % 1; Monocytes % (manual) 5 (0-12)
[2021-03-19] MEDS: APIXABAN 5 MG TAB PO SCH ×2 (10:00→22:00)
[2021-03-19] MEDS: DexAMETHasone SOD PHOS 10MG/1ML VIAL INJ IV SCH (10:00)
[2021-03-19] MEDS: LINEZOLID 600MG/300ML 300 ML IV SCH (10:00)
[2021-03-19] MEDS: ASCORBIC ACID 1,000 MG TAB PO SCH (10:00)
[2021-03-19] MEDS ORDERED: FUROSEMIDE 40 MG/4 ML VIAL IV SCH (10:00)
[2021-03-19] MEDS: PANTOPRAZOLE 40 MG/10 ML VIAL INJ IV SCH (10:00)
[2021-03-19] MEDS: fentaNYL Drip 2500mCg/250mlNS 250 ML IV SCH (16:20)
[2021-03-19] MEDS: ATORVASTATIN 20 MG TAB PO SCH (22:00)
[2021-03-20] VITALS (20 sets, daily range): BP systolic 101–142; BP diastolic 55–81
[2021-03-20] MEDS: POTASSIUM CHLORIDE 20 MEQ in D5W 5% 1,000 ML IV SCH (00:18)
[2021-03-20 05:09] LABS: Basophils # (auto) 0 10 ^3/uL (0-0.2); Basophils % (auto) 0.2 % (0.0-2.0); Eosinophils # (auto) 0 10 ^3/uL (0-0.8); Hematocrit 33.8 % (41.0-53.0); Hemoglobin 11.4 g/dL (13.5-17.5); Lymphocytes # (auto) 0.6 10 ^3/uL (0.4-5.4); Mean Corpuscular Hemoglobin 30.1 pg (28.0-32.0); Mean Corpuscular Hgb Conc. 33.6 g/dL (32.0-36.0); Mean Corpuscular Volume 89.6 fL (80.0-100.0); Monocytes # (auto) 0.4 10 ^3/uL (0-1.3); Monocytes % (auto) 3.3 % (0.0-12.0); Neutrophils # (auto) 10.6 10 ^3/uL (1.6-8.6); Neutrophils % (auto) 91.5 % (37.0-80.0); Nucleated Red Blood Cells % 0.1 %; Red Blood Cells 3.78 10^6/uL (4.5-5.90); Red Cell Distribution Width 16.9 % (11.8-14.3); White Blood Cell 11.6 10^3/uL (4.4-10.8)
[2021-03-20 05:28] LABS: Calcium 8.9 mg/dL (8.5-10.1); Potassium 4.7 mmol/L (3.5-5.1)
[2021-03-20 05:34] LABS: Albumin 2.1 g/dL (3.4-5.0); BUN/Creatinine Ratio 35.5; Bilirubin, Total 0.4 mg/dL (0.2-1.0); Total Protein 6.2 g/dL (6.4-8.2)
[2021-03-20] MEDS: BUDESONIDE (INHALATION) 0.5 MG/2 ML NEB NEB SCH ×2 (05:38→18:46)
[2021-03-20] MEDS: ALBUTEROL SULF 2.5 MG/0.5ML(0.5%) NEB SOLN NEB SCH ×4 (05:38→18:46)
[2021-03-20] MEDS: METOCLOPRAMIDE HCL 5MG/ml INJ 2ml VIAL IV SCH ×3 (06:00→22:00)
[2021-03-20] MEDS: CEFEPIME 1 GM in SODIUM CHL 0.9% 50 ML IV SCH ×3 (06:00→22:00)
[2021-03-20] MEDS: PROPOFOL 100 ML IV SCH (08:19)
[2021-03-20] MEDS: fentaNYL Drip 2500mCg/250mlNS 250 ML IV SCH (09:30)
[2021-03-20] MEDS: PANTOPRAZOLE 40 MG/10 ML VIAL INJ IV SCH (10:00)
[2021-03-20] MEDS: DexAMETHasone SOD PHOS 10MG/1ML VIAL INJ IV SCH (10:00)
[2021-03-20] MEDS: APIXABAN 5 MG TAB PO SCH ×2 (10:00→22:00)
[2021-03-20] MEDS: ASCORBIC ACID 1,000 MG TAB PO SCH (10:00)
[2021-03-20] MEDS: LINEZOLID 600MG/300ML 300 ML IV SCH ×2 (10:00)
[2021-03-20] MEDS ORDERED: FUROSEMIDE 20 MG/2 ML VIAL IV ONE (13:15)
[2021-03-20] MEDS: ATORVASTATIN 20 MG TAB PO SCH (22:00)
[2021-03-21] VITALS (13 sets, daily range): BP systolic 105–149; BP diastolic 58–90
[2021-03-21] MEDS: ALBUTEROL SULF 2.5 MG/0.5ML(0.5%) NEB SOLN NEB SCH ×4 (00:10→19:13)
[2021-03-21] MEDS: METOCLOPRAMIDE HCL 5MG/ml INJ 2ml VIAL IV SCH ×2 (06:00→15:07)
[2021-03-21] MEDS: CEFEPIME 1 GM in SODIUM CHL 0.9% 50 ML IV SCH ×2 (06:00→15:07)
[2021-03-21] MEDS: BUDESONIDE (INHALATION) 0.5 MG/2 ML NEB NEB SCH ×2 (07:31→19:13)
[2021-03-21] MEDS: PROPOFOL 100 ML IV SCH ×2 (08:45→10:57)
[2021-03-21] MEDS: fentaNYL Drip 2500mCg/250mlNS 250 ML IV SCH ×2 (09:30→15:29)
[2021-03-21 10:01] LABS: Calcium 8.6 mg/dL (8.5-10.1); Potassium 4.5 mmol/L (3.5-5.1)
[2021-03-21 10:06] LABS: Bilirubin, Total 0.4 mg/dL (0.2-1.0)
[2021-03-21] MEDS: APIXABAN 5 MG TAB PO SCH (11:00)
[2021-03-21] MEDS: MIDAZOLAM DRIP 50 mg/50mL 50 ML IV SCH ×2 (11:00→17:05)
[2021-03-21] MEDS: LINEZOLID 600MG/300ML 300 ML IV SCH ×2 (11:00)
[2021-03-21] MEDS: PANTOPRAZOLE 40 MG/10 ML VIAL INJ IV SCH (11:00)
[2021-03-21] MEDS: ASCORBIC ACID 1,000 MG TAB PO SCH (11:01)
[2021-03-21 11:02] LABS: Basophils # (auto) 0.1 10 ^3/uL (0-0.2); Basophils % (auto) 0.4 % (0.0-2.0); Eosinophils # (auto) 0 10 ^3/uL (0-0.8); Eosinophils % (auto) 0.2 % (0.0-7.0); Hemoglobin 11.1 g/dL (13.5-17.5); Lymphocytes # (auto) 0.8 10 ^3/uL (0.4-5.4); Lymphocytes % (auto) 6.3 % (10.0-50.0); Mean Corpuscular Hemoglobin 29.6 pg (28.0-32.0); Mean Corpuscular Hgb Conc. 32.8 g/dL (32.0-36.0); Mean Corpuscular Volume 90.3 fL (80.0-100.0); Monocytes % (auto) 8.1 % (0.0-12.0); Neutrophils # (auto) 10.6 10 ^3/uL (1.6-8.6); Nucleated Red Blood Cells % 0.2 %; Red Blood Cells 3.77 10^6/uL (4.5-5.90); White Blood Cell 12.5 10^3/uL (4.4-10.8)
[2021-03-21] MEDS: IVERMECTIN 3 MG TAB PO SCH (15:07)
[2021-03-22] VITALS (50 sets, daily range): BP systolic 83–134; BP diastolic 42–88
[2021-03-22] MEDS: METOCLOPRAMIDE HCL 5MG/ml INJ 2ml VIAL IV SCH ×4 (00:42→23:26)
[2021-03-22] MEDS: LINEZOLID 600MG/300ML 300 ML IV SCH ×3 (00:42→23:26)
[2021-03-22] MEDS: APIXABAN 5 MG TAB PO SCH ×3 (00:43→23:27)
[2021-03-22] MEDS: ATORVASTATIN 20 MG TAB PO SCH ×2 (00:43→23:27)
[2021-03-22] MEDS: CEFEPIME 1 GM in SODIUM CHL 0.9% 50 ML IV SCH ×4 (00:44→23:29)
[2021-03-22] MEDS: PROPOFOL 100 ML IV SCH (08:45)
[2021-03-22] MEDS ORDERED: ALBUMIN 25% 100 ML IV ONE (09:30)
[2021-03-22] MEDS: FUROSEMIDE 40 MG/4 ML VIAL IV SCH (09:54)
[2021-03-22] MEDS: IVERMECTIN 3 MG TAB PO SCH (09:55)
[2021-03-22] MEDS: PANTOPRAZOLE 40 MG/10 ML VIAL INJ IV SCH (09:55)
[2021-03-22] MEDS: ASCORBIC ACID 1,000 MG TAB PO SCH (09:56)
[2021-03-22] MEDS: MIDAZOLAM DRIP 50 mg/50mL 50 ML IV SCH ×2 (13:46→17:35)
[2021-03-22] MEDS ORDERED: SODIUM CHLORIDE 0.9 % NEB SOLN 3ML NEB ONE (14:06)
[2021-03-22] MEDS: fentaNYL Drip 2500mCg/250mlNS 250 ML IV SCH (17:51)
[2021-03-22] MEDS: BUDESONIDE (INHALATION) 0.5 MG/2 ML NEB NEB SCH ×2 (19:04→22:00)
[2021-03-22] MEDS: ALBUTEROL SULF 2.5 MG/0.5ML(0.5%) NEB SOLN NEB SCH ×2 (19:04)
[2021-03-22] MEDS ORDERED: NOREPINEPHRINE 8 MG/250ML KIT 0 ML IV ONE (20:36)
[2021-03-22] MEDS ORDERED: ALBUMIN 5% 250 ML IV ONE ×2 (21:13→21:15)
[2021-03-23] VITALS (48 sets, daily range): BP systolic 76–197; BP diastolic 44–84
[2021-03-23] MEDS: ALBUTEROL SULF 2.5 MG/0.5ML(0.5%) NEB SOLN NEB SCH ×4 (00:55→19:34)
[2021-03-23 04:30] LABS: Basophils # (auto) 0 10 ^3/uL (0-0.2); Basophils % (auto) 0.3 % (0.0-2.0); Eosinophils # (auto) 0 10 ^3/uL (0-0.8); Eosinophils % (auto) 0.6 % (0.0-7.0); Hemoglobin 9.9 g/dL (13.5-17.5); Lymphocytes % (auto) 13.9 % (10.0-50.0); Mean Corpuscular Hemoglobin 30.3 pg (28.0-32.0); Mean Corpuscular Hgb Conc. 33.1 g/dL (32.0-36.0); Mean Corpuscular Volume 91.6 fL (80.0-100.0); Monocytes # (auto) 0.8 10 ^3/uL (0-1.3); Monocytes % (auto) 10.8 % (0.0-12.0); Neutrophils # (auto) 5.5 10 ^3/uL (1.6-8.6); Neutrophils % (auto) 74.4 % (37.0-80.0); Nucleated Red Blood Cells % 0.1 %; Red Blood Cells 3.28 10^6/uL (4.5-5.90); Red Cell Distribution Width 17.8 % (11.8-14.3); White Blood Cell 7.4 10^3/uL (4.4-10.8)
[2021-03-23 04:56] LABS: Albumin 2.5 g/dL (3.4-5.0); BUN/Creatinine Ratio 48.3; Calcium 8.1 mg/dL (8.5-10.1); Potassium 3.5 mmol/L (3.5-5.1)
[2021-03-23 04:59] LABS: Bilirubin, Total 0.4 mg/dL (0.2-1.0); Total Protein 5.2 g/dL (6.4-8.2)
[2021-03-23] MEDS: METOCLOPRAMIDE HCL 5MG/ml INJ 2ml VIAL IV SCH ×2 (05:25→15:41)
[2021-03-23] MEDS: CEFEPIME 1 GM in SODIUM CHL 0.9% 50 ML IV SCH (06:17)
[2021-03-23] MEDS: MIDAZOLAM DRIP 50 mg/50mL 50 ML IV SCH (08:30)
[2021-03-23] MEDS: BUDESONIDE (INHALATION) 0.5 MG/2 ML NEB NEB SCH ×2 (09:54→19:35)
[2021-03-23] MEDS: FUROSEMIDE 40 MG/4 ML VIAL IV SCH (10:03)
[2021-03-23] MEDS: LINEZOLID 600MG/300ML 300 ML IV SCH (10:04)
[2021-03-23] MEDS: APIXABAN 5 MG TAB PO SCH (10:04)
[2021-03-23] MEDS: PANTOPRAZOLE 40 MG/10 ML VIAL INJ IV SCH (10:04)
[2021-03-23] MEDS: ASCORBIC ACID 1,000 MG TAB PO SCH (10:05)
[2021-03-23] MEDS: IVERMECTIN 3 MG TAB PO SCH (10:05)
[2021-03-23 12:06] LABS: INR 1.12 (0.9-1.15); Partial Thromboplastin Time 26.4 sec (23.6-33.0)
[2021-03-23] MEDS: PROPOFOL 100 ML IV SCH ×2 (13:29→16:03)
[2021-03-23] MEDS ORDERED: PHENYLEPHRINE IV 250 ML IV ONE (13:53)
[2021-03-23] MEDS ORDERED: NOREPINEPHRINE 8 MG/250ML KIT 250 ML IV ONE (14:07)
[2021-03-23] MEDS: ATORVASTATIN 20 MG TAB PO SCH (15:10)
[2021-03-23] MEDS: MUPIROCIN 2% OINT 15gm or 22gm EACHNOSTRI SCH (15:41)
[2021-03-23] MEDS: NOREPINEPHRINE 8 MG/250ML KIT 250 ML IV SCH (15:42)
[2021-03-23] MEDS ORDERED: LIDOCAINE 1% (LOCAL ANESTH.) PF 5ml SDV ID ONE (17:45)
[2021-03-24] VITALS (73 sets, daily range): BP systolic 99–159; BP diastolic 55–77
[2021-03-24] MEDS: ALBUTEROL SULF 2.5 MG/0.5ML(0.5%) NEB SOLN NEB SCH ×4 (00:49→18:33)
[2021-03-24 04:37] LABS: Basophils # (auto) 0.1 10 ^3/uL (0-0.2); Basophils % (auto) 1.3 % (0.0-2.0); Eosinophils # (auto) 0.1 10 ^3/uL (0-0.8); Eosinophils % (auto) 0.9 % (0.0-7.0); Hematocrit 29.5 % (41.0-53.0); Lymphocytes # (auto) 1.3 10 ^3/uL (0.4-5.4); Lymphocytes % (auto) 13.8 % (10.0-50.0); Mean Corpuscular Hemoglobin 31.1 pg (28.0-32.0); Mean Corpuscular Hgb Conc. 33.8 g/dL (32.0-36.0); Mean Corpuscular Volume 91.9 fL (80.0-100.0); Monocytes # (auto) 0.8 10 ^3/uL (0-1.3); Monocytes % (auto) 8.7 % (0.0-12.0); Neutrophils # (auto) 7.1 10 ^3/uL (1.6-8.6); Neutrophils % (auto) 75.3 % (37.0-80.0); Nucleated Red Blood Cells % 0.2 %; Red Blood Cells 3.21 10^6/uL (4.5-5.90); White Blood Cell 9.4 10^3/uL (4.4-10.8)
[2021-03-24 04:48] LABS: BUN/Creatinine Ratio 43.2; Calcium 7.2 mg/dL (8.5-10.1)
[2021-03-24] MEDS: METOCLOPRAMIDE HCL 5MG/ml INJ 2ml VIAL IV SCH ×4 (05:05→21:54)
[2021-03-24] MEDS: SODIUM CHLOR 0.9% PF (SALINE LOCK) 10ML VIAL/SYR IV SCH ×3 (05:05→21:54)
[2021-03-24] MEDS: MUPIROCIN 2% OINT 15gm or 22gm EACHNOSTRI SCH ×3 (05:05→21:53)
[2021-03-24] MEDS: APIXABAN 5 MG TAB PO SCH ×3 (05:06→21:54)
[2021-03-24] MEDS: LINEZOLID 600MG/300ML 300 ML IV SCH ×3 (05:06→21:54)
[2021-03-24] MEDS: BUDESONIDE (INHALATION) 0.5 MG/2 ML NEB NEB SCH ×2 (06:20→18:34)
[2021-03-24] MEDS: fentaNYL Drip 2500mCg/250mlNS 250 ML IV SCH ×2 (08:07→17:16)
[2021-03-24] MEDS: MIDAZOLAM DRIP 50 mg/50mL 50 ML IV SCH ×4 (09:55→20:33)
[2021-03-24] MEDS ORDERED: POTASSIUM EFFERVESENT TAB 25 MEQ GT SCH (10:00)
[2021-03-24] MEDS: FUROSEMIDE 40 MG/4 ML VIAL IV SCH (10:06)
[2021-03-24] MEDS: PANTOPRAZOLE 40 MG/10 ML VIAL INJ IV SCH (10:07)
[2021-03-24] MEDS: ASCORBIC ACID 1,000 MG TAB PO SCH (10:08)
[2021-03-24] MEDS: PROPOFOL 100 ML IV SCH (12:05)
[2021-03-24] MEDS: ACETYLCYSTEINE 10 %(100MG/ML) SOL 4ML NEB SCH ×2 (12:24→18:34)
[2021-03-24] MEDS: POTASSIUM CHL 20MEQ/50ML 50 ML IV SCH ×3 (13:27→15:07)
[2021-03-24] MEDS: NOREPINEPHRINE 8 MG/250ML KIT 250 ML IV SCH (14:30)
[2021-03-24] MEDS: IVERMECTIN 3 MG TAB PO SCH (14:37)
[2021-03-24] MEDS: ATORVASTATIN 20 MG TAB PO SCH (21:54)
[2021-03-25] VITALS (31 sets, daily range): BP systolic 92–136; BP diastolic 51–72
[2021-03-25] MEDS: ALBUTEROL SULF 2.5 MG/0.5ML(0.5%) NEB SOLN NEB SCH ×5 (02:03→22:00)
[2021-03-25] MEDS: ACETYLCYSTEINE 10 %(100MG/ML) SOL 4ML NEB SCH ×5 (02:03→22:05)
[2021-03-25 04:45] LABS: Basophils # (auto) 0 10 ^3/uL (0-0.2); Basophils % (auto) 0.5 % (0.0-2.0); Eosinophils # (auto) 0.1 10 ^3/uL (0-0.8); Eosinophils % (auto) 1.1 % (0.0-7.0); Hematocrit 30.2 % (41.0-53.0); Hemoglobin 10.1 g/dL (13.5-17.5); Lymphocytes # (auto) 1.6 10 ^3/uL (0.4-5.4); Lymphocytes % (auto) 16.1 % (10.0-50.0); Mean Corpuscular Hemoglobin 30.4 pg (28.0-32.0); Mean Corpuscular Hgb Conc. 33.3 g/dL (32.0-36.0); Mean Corpuscular Volume 91.3 fL (80.0-100.0); Monocytes # (auto) 0.7 10 ^3/uL (0-1.3); Monocytes % (auto) 7.6 % (0.0-12.0); Neutrophils # (auto) 7.2 10 ^3/uL (1.6-8.6); Neutrophils % (auto) 74.7 % (37.0-80.0); Nucleated Red Blood Cells % 0.1 %; Red Blood Cells 3.31 10^6/uL (4.5-5.90); Red Cell Distribution Width 17.8 % (11.8-14.3); White Blood Cell 9.7 10^3/uL (4.4-10.8)
[2021-03-25 05:02] LABS: Calcium 8.2 mg/dL (8.5-10.1); Potassium 5.2 mmol/L (3.5-5.1)
[2021-03-25 05:08] LABS: BUN/Creatinine Ratio 28.7; Bilirubin, Total 0.4 mg/dL (0.2-1.0); Total Protein 4.8 g/dL (6.4-8.2)
[2021-03-25] MEDS: METOCLOPRAMIDE HCL 5MG/ml INJ 2ml VIAL IV SCH ×3 (07:15→22:53)
[2021-03-25] MEDS: MIDAZOLAM DRIP 50 mg/50mL 50 ML IV SCH ×4 (07:16→22:55)
[2021-03-25] MEDS ORDERED: FUROSEMIDE 40 MG/4 ML VIAL IV ONE (07:30)
[2021-03-25] MEDS: BUDESONIDE (INHALATION) 0.5 MG/2 ML NEB NEB SCH ×3 (07:40→22:00)
[2021-03-25] MEDS: PANTOPRAZOLE 40 MG/10 ML VIAL INJ IV SCH (10:33)
[2021-03-25] MEDS: LINEZOLID 600MG/300ML 300 ML IV SCH ×2 (10:34→22:54)
[2021-03-25] MEDS: ASCORBIC ACID 1,000 MG TAB PO SCH (10:35)
[2021-03-25] MEDS: MUPIROCIN 2% OINT 15gm or 22gm EACHNOSTRI SCH ×2 (10:35→22:53)
[2021-03-25] MEDS: PROPOFOL 100 ML IV SCH ×2 (12:00→18:00)
[2021-03-25] MEDS: NOREPINEPHRINE 8 MG/250ML KIT 250 ML IV SCH (14:30)
[2021-03-25] MEDS: FUROSEMIDE 40 MG/4 ML VIAL IV SCH (19:04)
[2021-03-25] MEDS: SODIUM CHLOR 0.9% PF (SALINE LOCK) 10ML VIAL/SYR IV SCH ×2 (19:05→22:53)
[2021-03-25] MEDS: APIXABAN 5 MG TAB PO SCH ×2 (19:06→22:54)
[2021-03-25] MEDS: IVERMECTIN 3 MG TAB PO SCH (19:08)
[2021-03-25 20:12] LABS: BUN/Creatinine Ratio 42.4; Calcium 7.7 mg/dL (8.5-10.1); Potassium 5.4 mmol/L (3.5-5.1)
[2021-03-25] MEDS: ATORVASTATIN 20 MG TAB PO SCH (22:54)
[2021-03-26] VITALS (37 sets, daily range): BP systolic 87–128; BP diastolic 47–69
[2021-03-26 05:19] LABS: Potassium 4.7 mmol/L (3.5-5.1)
[2021-03-26 05:26] LABS: Albumin 1.9 g/dL (3.4-5.0); BUN/Creatinine Ratio 44.4; Calcium 8.4 mg/dL (8.5-10.1)
[2021-03-26 05:40] LABS: Bilirubin, Total 0.5 mg/dL (0.2-1.0); Total Protein 4.8 g/dL (6.4-8.2)
[2021-03-26] MEDS: METOCLOPRAMIDE HCL 5MG/ml INJ 2ml VIAL IV SCH ×3 (06:29→22:00)
[2021-03-26] MEDS: ALBUTEROL SULF 2.5 MG/0.5ML(0.5%) NEB SOLN NEB SCH ×3 (07:26→19:27)
[2021-03-26] MEDS: ACETYLCYSTEINE 10 %(100MG/ML) SOL 4ML NEB SCH ×3 (07:27→19:27)
[2021-03-26] MEDS: PROPOFOL 100 ML IV SCH ×2 (08:20→15:47)
[2021-03-26] MEDS: fentaNYL Drip 2500mCg/250mlNS 250 ML IV SCH (09:30)
[2021-03-26] MEDS: MUPIROCIN 2% OINT 15gm or 22gm EACHNOSTRI SCH ×2 (15:49→22:00)
[2021-03-26] MEDS: FUROSEMIDE 40 MG/4 ML VIAL IV SCH (15:50)
[2021-03-26] MEDS: SODIUM CHLOR 0.9% PF (SALINE LOCK) 10ML VIAL/SYR IV SCH ×2 (15:50→22:00)
[2021-03-26] MEDS: LINEZOLID 600MG/300ML 300 ML IV SCH ×2 (15:51→22:00)
[2021-03-26] MEDS: APIXABAN 5 MG TAB PO SCH ×2 (15:51→22:00)
[2021-03-26] MEDS: ASCORBIC ACID 1,000 MG TAB PO SCH (15:52)
[2021-03-26] MEDS: NOREPINEPHRINE 8 MG/250ML KIT 250 ML IV SCH (15:53)
[2021-03-26] MEDS: MIDAZOLAM DRIP 50 mg/50mL 50 ML IV SCH (15:58)
[2021-03-26] MEDS: PANTOPRAZOLE 40 MG/10 ML VIAL INJ IV SCH (15:58)
[2021-03-26] MEDS ORDERED: ERTAPENEM SOD INJ 1 GM in SODIUM CHL 0.9% 50 ML IV ONE (21:45)
[2021-03-26] MEDS: ATORVASTATIN 20 MG TAB PO SCH (22:00)
[2021-03-26] MEDS ORDERED: MEROPENEM 1GM IVPB 100 ML IV ONE (23:42)
[2021-03-27] VITALS (99 sets, daily range): BP systolic 82–120; BP diastolic 47–65
[2021-03-27] MEDS ORDERED: ERTAPENEM SOD 1 GM INJ VIAL ONE (00:03)
[2021-03-27 04:35] LABS: Basophils # (auto) 0 10 ^3/uL (0-0.2); Basophils % (auto) 0.3 % (0.0-2.0); Eosinophils # (auto) 0 10 ^3/uL (0-0.8); Eosinophils % (auto) 0.2 % (0.0-7.0); Hematocrit 32.1 % (41.0-53.0); Hemoglobin 10.5 g/dL (13.5-17.5); Lymphocytes # (auto) 0.9 10 ^3/uL (0.4-5.4); Lymphocytes % (auto) 6.6 % (10.0-50.0); Mean Corpuscular Hemoglobin 29.7 pg (28.0-32.0); Mean Corpuscular Hgb Conc. 32.6 g/dL (32.0-36.0); Mean Corpuscular Volume 91.1 fL (80.0-100.0); Monocytes # (auto) 0.5 10 ^3/uL (0-1.3); Monocytes % (auto) 3.6 % (0.0-12.0); Neutrophils # (auto) 12.9 10 ^3/uL (1.6-8.6); Neutrophils % (auto) 89.3 % (37.0-80.0); Red Blood Cells 3.52 10^6/uL (4.5-5.90); White Blood Cell 14.4 10^3/uL (4.4-10.8)
[2021-03-27 04:45] LABS: Albumin 1.9 g/dL (3.4-5.0); Calcium 8.4 mg/dL (8.5-10.1)
[2021-03-27 04:49] LABS: BUN/Creatinine Ratio 35.4; Bilirubin, Total 0.7 mg/dL (0.2-1.0); Total Protein 5.8 g/dL (6.4-8.2)
[2021-03-27] MEDS: METOCLOPRAMIDE HCL 5MG/ml INJ 2ml VIAL IV SCH ×3 (05:04→22:00)
[2021-03-27] MEDS: BUDESONIDE (INHALATION) 0.5 MG/2 ML NEB NEB SCH ×2 (06:30→19:21)
[2021-03-27] MEDS: ACETYLCYSTEINE 10 %(100MG/ML) SOL 4ML NEB SCH ×3 (06:30→19:44)
[2021-03-27] MEDS: ALBUTEROL SULF 2.5 MG/0.5ML(0.5%) NEB SOLN NEB SCH ×3 (06:30→19:44)
[2021-03-27] MEDS: PROPOFOL 100 ML IV SCH ×4 (08:30→17:45)
[2021-03-27] MEDS: LINEZOLID 600MG/300ML 300 ML IV SCH ×2 (09:30→22:00)
[2021-03-27] MEDS: fentaNYL Drip 2500mCg/250mlNS 250 ML IV SCH (09:30)
[2021-03-27] MEDS: MUPIROCIN 2% OINT 15gm or 22gm EACHNOSTRI SCH ×2 (09:56→22:00)
[2021-03-27] MEDS: FUROSEMIDE 40 MG/4 ML VIAL IV SCH (09:57)
[2021-03-27] MEDS: ASCORBIC ACID 1,000 MG TAB PO SCH (09:57)
[2021-03-27] MEDS: SODIUM CHLOR 0.9% PF (SALINE LOCK) 10ML VIAL/SYR IV SCH ×2 (09:57→22:00)
[2021-03-27] MEDS: PANTOPRAZOLE 40 MG/10 ML VIAL INJ IV SCH (09:57)
[2021-03-27] MEDS: APIXABAN 5 MG TAB PO SCH ×2 (09:57→22:00)
[2021-03-27] MEDS ORDERED: MICAFUNGIN SODIUM 100 MG in SODIUM CHL 0.9% 100 ML IV SCH (10:00)
[2021-03-27] MEDS ORDERED: ERTAPENEM SOD INJ 1 GM in SODIUM CHL 0.9% 50 ML IV SCH (10:00)
[2021-03-27] MEDS: NOREPINEPHRINE 8 MG/250ML KIT 250 ML IV SCH ×2 (10:30→14:30)
[2021-03-27] MEDS: MIDAZOLAM DRIP 50 mg/50mL 50 ML IV SCH ×3 (14:10→18:45)
[2021-03-27] MEDS: ATORVASTATIN 20 MG TAB PO SCH (22:00)
[2021-03-28] VITALS (59 sets, daily range): BP systolic 79–140; BP diastolic 47–71
[2021-03-28] MEDS: ACETYLCYSTEINE 10 %(100MG/ML) SOL 4ML NEB SCH ×2 (00:05→06:17)
[2021-03-28] MEDS: ALBUTEROL SULF 2.5 MG/0.5ML(0.5%) NEB SOLN NEB SCH ×2 (00:05→06:17)
[2021-03-28 04:41] LABS: Basophils # (auto) 0 10 ^3/uL (0-0.2); Basophils % (auto) 0.2 % (0.0-2.0); Eosinophils # (auto) 0 10 ^3/uL (0-0.8); Eosinophils % (auto) 0.3 % (0.0-7.0); Hemoglobin 10.1 g/dL (13.5-17.5); Lymphocytes # (auto) 0.9 10 ^3/uL (0.4-5.4); Lymphocytes % (auto) 6.2 % (10.0-50.0); Mean Corpuscular Hemoglobin 30.1 pg (28.0-32.0); Mean Corpuscular Hgb Conc. 32.6 g/dL (32.0-36.0); Mean Corpuscular Volume 92.3 fL (80.0-100.0); Monocytes # (auto) 1.1 10 ^3/uL (0-1.3); Monocytes % (auto) 7.7 % (0.0-12.0); Neutrophils # (auto) 12.4 10 ^3/uL (1.6-8.6); Neutrophils % (auto) 85.6 % (37.0-80.0); Nucleated Red Blood Cells % 0.3 %; Red Blood Cells 3.36 10^6/uL (4.5-5.90); Red Cell Distribution Width 18.3 % (11.8-14.3); White Blood Cell 14.5 10^3/uL (4.4-10.8)
[2021-03-28 05:05] LABS: Albumin 1.8 g/dL (3.4-5.0); BUN/Creatinine Ratio 25.7; Calcium 8.8 mg/dL (8.5-10.1)
[2021-03-28 05:07] LABS: Bilirubin, Total 0.5 mg/dL (0.2-1.0); Total Protein 5.9 g/dL (6.4-8.2)
[2021-03-28 05:10] LABS: Potassium 5.8 mmol/L (3.5-5.1)
[2021-03-28] MEDS: METOCLOPRAMIDE HCL 5MG/ml INJ 2ml VIAL IV SCH (05:47)
[2021-03-28] MEDS ORDERED: SODIUM ZIRCONIUM CYCL 10 GM PAK PO ONE (06:30)
[2021-03-28] MEDS: PROPOFOL 100 ML IV SCH (08:45)
[2021-03-28] MEDS: fentaNYL Drip 2500mCg/250mlNS 250 ML IV SCH (09:54)
[2021-03-28] MEDS: MIDAZOLAM DRIP 50 mg/50mL 50 ML IV SCH (09:54)
[2021-03-28] MEDS: APIXABAN 5 MG TAB PO SCH (09:55)
[2021-03-28] MEDS: ASCORBIC ACID 1,000 MG TAB PO SCH (09:55)
[2021-03-28] MEDS: FUROSEMIDE 40 MG/4 ML VIAL IV SCH (09:55)
[2021-03-28] MEDS: PANTOPRAZOLE 40 MG/10 ML VIAL INJ IV SCH (09:55)
[2021-03-28] MEDS: SODIUM CHLOR 0.9% PF (SALINE LOCK) 10ML VIAL/SYR IV SCH (09:55)
[2021-03-28] MEDS ORDERED: MORPHINE SULFATE INJECTION 2 MG/ML SYRG IV PRN (14:30)
[2021-03-28] MEDS ORDERED: LORazepam 2MG/ML-1ML VIAL IV PRN (14:30)
== END 2021-03-28 23:50 | DRG 207 ==
LOC: EDBD 06:58 → ER 06:58 → TELE 11:49 → ICU WEST 03-16 08:45
PROVIDERS: ADMIT Hospitalist; ATTEND Internal Medicine
PROC: 5A09457 Assistance with Respiratory Ventilation, 24-96 Consecutive Hours, Continuous Positive Airway Pressure (ICD-10-PCS; 2021-03-09)
PROC: XW033E5 Introduction of Remdesivir Anti-infective into Peripheral Vein, Percutaneous Approach, New Technology Group 5 (ICD-10-PCS; 2021-03-09)
PROC: 5A1955Z Respiratory Ventilation, Greater than 96 Consecutive Hours (ICD-10-PCS; principal; 2021-03-13)
PROC: 02HV33Z Insertion of Infusion Device into Superior Vena Cava, Percutaneous Approach (ICD-10-PCS; 2021-03-13)
PROC: 0BH17EZ Insertion of Endotracheal Airway into Trachea, Via Natural or Artificial Opening (ICD-10-PCS; 2021-03-13)
DX: U07.1 COVID-19 (principal); J12.82 Pneumonia due to coronavirus disease 2019; I50.33 Acute on chronic diastolic (congestive) heart failure; N17.0 Acute kidney failure with tubular necrosis; E43 Unspecified severe protein-calorie malnutrition; J15.212 Pneumonia due to Methicillin resistant Staphylococcus aureus; J96.21 Acute and chronic respiratory failure with hypoxia; J96.22 Acute and chronic respiratory failure with hypercapnia; J44.1 Chronic obstructive pulmonary disease with (acute) exacerbation; L03.115 Cellulitis of right lower limb; J44.0 Chronic obstructive pulmonary disease with (acute) lower respiratory infection; J98.11 Atelectasis; I16.1 Hypertensive emergency; I48.20 Chronic atrial fibrillation, unspecified; I27.82 Chronic pulmonary embolism; D89.839 Cytokine release syndrome, grade unspecified; Z23 Encounter for immunization; G62.9 Polyneuropathy, unspecified; I25.10 Atherosclerotic heart disease of native coronary artery without angina pectoris; G47.33 Obstructive sleep apnea (adult) (pediatric); I25.5 Ischemic cardiomyopathy; C61 Malignant neoplasm of prostate; E78.5 Hyperlipidemia, unspecified; Z22.322 Carrier or suspected carrier of Methicillin resistant Staphylococcus aureus; Z68.31 Body mass index [BMI] 31.0-31.9, adult; Z51.5 Encounter for palliative care; Z95.5 Presence of coronary angioplasty implant and graft; Z99.81 Dependence on supplemental oxygen; Z95.2 Presence of prosthetic heart valve
CPT/HCPCS: 36415; 36569; 36600; 71045; 80048; 80053; 80307; 81001; 82306; 82728; 82805; 82962; 83036; 83605; 83615; 83735; 83880; 84100; 84132; 84443; 84484; 85007; 85025; 85027; 85379; 85610; 85730; 86141; 87040; 87070; 87077; 87081; 87086; 87186; 87205; 87426; 93005; 93306; 93970; 94002; 94003; 94640; 94660; 96365; 96367; 96375; 99291; C1751; C9113; G0378; J0330; J0696; J1100; J1335; J1956; J2185; J2248; J2250; J2405; J2543; J2704; J3490; P9047